=== PATIENT | male | born 1985 | race Caucasian/White ===

== ENCOUNTER 2018-01-01 16:09 | Emergency (ER) | payer OTHER ==
[~2018-01-01] VITALS: Ht 180.3 cm; Wt 83.9 kg
[~2018-01-01 16:09] MED LIST: AMOXICOT500 MG PO; BACTRIM DS 8001 TAB PO; MOTRIN800 MG PO; PRILOSEC OTC20 M1 PO; TRAMADOL50 MG PO; TYLENOL #31 TAB PO
[2018-01-01 16:21] VITALS: BP 156/90
[2018-01-01] MEDS ORDERED: AMOXICILLIN875 M1 PO (16:42)
[2018-01-01] MEDS ORDERED: PERIOGARD473 ML PO (16:42)
--- NOTE | 2018-01-01 16:44 | ED THROAT/DENTAL COMPLAINT ---
History of Present Illness General Chief Complaint: Sore Throat, Dental Pain Stated Complaint: RIGHT SIDED FACIAL PAIN/SWELLING SINCE WOKE UP7AM Source: patient Exam Limitations: no limitations Vital Signs & Intake/Output Vital Signs & Intake/Output Vital Signs Date Time Temp Pulse Resp B/P B/P Pulse O2 O2 Flow FiO2 Mean Ox Delivery Rate 01/01 1630 Room Air 01/01 1621 99.0 94 18 156/90 97 Room Air Allergies Coded Allergies: cefaclor (Intermediate, JOINTS LOCK UP 01/07/16) Reconcile Medications Amoxicillin 875 MG TABLET 1 TAB PO BID DENTAL INFECTIONS Chlorhexidine Gluconate (Periogard) 0.12 % MOUTHWASH 15 ML PO BID ABSCES TOOTH INFECTION Omeprazole Magnesium (Prilosec Otc) 20 MG TABLET. 1 TAB PO DAILY PRN GI ( Reported) Triage Note: PT FROM HOME C/O RIGHT SIDED FACIAL SWELLING X1 DAY. PT STATES HE AWOKE WITH THE RIGHT SIDE OF HIS MOUTH SWOLLEN, ABCESS. PT HAS LOW GRADE TEMP OF 99.0, VSS. PT DENIES SORE THROAT, DENTAL PAIN, OR EAR PAIN. PT A&0X3. Triage Nurses Notes Reviewed? yes Onset: Abrupt Duration: day(s): Timing: recent history Injury Environment: home Severity: moderate, severe No Modifying Factors: none HPI: 32-year-old male comes into the emergency room for further evaluation of right- sided facial swelling is been going on for the past day. Woke up with it. Sharp throbbing pain. Continuous. Nonradiating. Denies any fever chills. He has a broken tooth in the right side of the mouth. Comes in for further evaluation. (Raji Jaimes) Past History Travel History Traveled to [place] past 21 day No Medical History Any Pertinent Medical History? see below for history Neurological: NONE EENT: TONCILLECTOMY WISDOM TEETH REMOVED Cardiovascular: NONE Respiratory: NONE Gastrointestinal: GERD Hepatic: NONE Renal: NONE Musculoskeletal: NONE Psychiatric: NONE Endocrine: NONE Tetanus Vaccine: 01/07/16 Surgical History Surgical History: TONCILLECTOMY WISDOM TEETH REMOVED Psychosocial History What is your primary language Belarusian Tobacco Use: Current Daily Use Daily Tobacco Use Amount/Type: => 5 Cigarettes daily ETOH Use: occasional use Illicit Drug Use: denies illicit drug use Family History Hx Contributory? No (Raji Jaimes) Review of Systems Review of Systems Constitutional: Reports: no symptoms. EENTM: Reports: see HPI. Respiratory: Reports: no symptoms. Cardiovascular: Reports: no symptoms. GI: Reports: no symptoms. Genitourinary: Reports: no symptoms. Musculoskeletal: Reports: no symptoms. Skin: Reports: no symptoms. Neurological/Psychological: Reports: no symptoms. Hematologic/Endocrine: Reports: no symptoms. Immunologic/Allergic: Reports: no symptoms. All Other Systems: Reviewed and Negative (Raji Jaimes) Physical Exam Physical Exam General Appearance: well developed/nourished, alert, awake Head: RIGHT SIDE FACIAL SWELLING Eyes: Bilateral: normal appearance. Nose: normal inspection Mouth/Throat: dental tenderness, SWELLING RIGHT LOWER GUMLINE, CRACKED RIGHT LOWER MOLAR Neck: normal inspection Cardiovascular/Respiratory: no respiratory distress Neurologic/Psych: awake, alert, oriented x 3 Skin: intact, normal color Core Measures ACS in differential dx? No Sepsis Present: No Sepsis Focused Exam Completed? No (Raji Jaimes) Progress Differential Diagnosis: aspirated tooth, carious tooth, epiglottitis, Ludwigs angina, odontogenic abscess, stomatitis/gingivitis, tooth fracture Plan of Care: 01/01/2018 5:05:58 PM Comments: 01/01/2018 5:06:57 PM Started on oral antibiotics. Referred to dentist. Return if any other concerns worsening symptoms. (Raji Jaimes) Departure Departure Disposition: HOME OR SELF CARE Condition: Stable Clinical Impression Primary Impression: Dental abscess Referrals: Kamille Jones MD (PCP/Family) Additional Instructions: Take amoxicillin and mouthwash as prescribed. Follow-up with dentist. Return if any concerns worsening symptoms. Please go over all results of today's visit with your primary care doctor. Contact your primary care doctor to let them know you were here in the emergency room. There may be nonspecific findings which may not be related to your visit today here in the emergency room but may require further evaluation and chronic monitoring by your primary care doctor. If you had a laceration today the chance of foreign body always remains. You should follow-up with your primary care doctor for recheck in 3-5 days for a wound check. If you had an x-ray done there is a chance that a fracture could have been missed on initial read and you should follow-up with your primary care doctor for repeat x-rays if symptoms persist. If your blood pressure was elevated here in the emergency room please have rechecked by hyour primary care doctor within the next 48. If you were prescribed a narcotic here in the emergency room or any type of controlled substances you're not allowed to drive while taking this medication or operate any type of heavy machinery. Narcotics can make you feel lightheaded dizziness nausea and can cause constipation. You may need to pickle sorter a stool softener. Thank you for choosing [facility] emergency room. Please return to the emergency room immediately if you have any other concerns worsening of symptoms. Departure Forms: Customer Survey General Discharge Information Prescriptions: Current Visit Scripts Amoxicillin 1 TAB PO BID #20 TAB Chlorhexidine Gluconate (Periogard) 15 ML PO BID #473 ML (Raji Jaimes) PA/SECRETARY RECEPTIONIST Co-Sign Statement Statement: ED Attending supervision documentation- [] I saw and evaluated the patient. I have also reviewed all the pertinent lab results and diagnostic results. I agree with the findings and the plan of care as documented in the PA's/SECRETARY RECEPTIONIST's documentation. [X] I have reviewed the ED Record and agree with the PA's/SECRETARY RECEPTIONIST's documentation. [] Additions or exceptions (if any) to the PAs/SECRETARY RECEPTIONIST's note and plan are summarized below: [] (Liza REAL,Oren Jauregui) Procedures Incision and Drainage Site: RIGHT LOWER GUMLINE Blade Size: 18 GAUGE NEEDLE Progress: Approximately 4 mL of purulent discharge expressed, large abscess, (Raji Jaimes)
== END 2018-01-01 16:49 ==
LOC: ERH 16:09
DX: K04.7 Periapical abscess without sinus (principal)